=== PATIENT | female | born 1930 | race Caucasian/White ===

== ENCOUNTER 2019-04-01 20:05 | Emergency (ER) | payer OTHER ==
[~2019-04-01] VITALS: Ht 149.9 cm; Wt 51.7 kg
[2019-04-01] MEDS ORDERED: EVISTA60 MG (20:19)
[2019-04-01] MEDS ORDERED: NORVASC2.5 M1 (20:19)
[2019-04-01] MEDS ORDERED: LIPITOR20 MG (20:19)
[2019-04-01] MEDS ORDERED: HUMALOG MI100 UNIT/1 (20:20)
[2019-04-01] MEDS ORDERED: AVAPRO75 MG (20:20)
[2019-04-01] MEDS ORDERED: ASPIR 8181 MG (20:20)
[2019-04-01] MEDS ORDERED: HUMULIN 70100 UNIT/1 (20:21)
== END 2019-04-01 22:50 | disposition home or self-care (01) ==
LOC: ER 20:05
DX: J06.9 Acute upper respiratory infection, unspecified (principal); S70.01XA Contusion of right hip, initial encounter; S60.211A Contusion of right wrist, initial encounter; M54.2 Cervicalgia; W18.09XA Striking against other object with subsequent fall, initial encounter; Y93.89 Activity, other specified; Y92.018 Other place in single-family (private) house as the place of occurrence of the external cause; Y99.8 Other external cause status

== ENCOUNTER 2019-04-06 15:37 | Emergency (ER) | payer OTHER ==
[~2019-04-06] VITALS: Ht 152.4 cm; Wt 54.4 kg
[~2019-04-06 15:37] MED LIST: ASPIR 8181 MG; AVAPRO75 MG; EVISTA60 MG; HUMALOG MI100 UNIT/1; HUMULIN 70100 UNIT/1; LIPITOR20 MG; NORVASC2.5 M1
== END 2019-04-06 23:45 | disposition home or self-care (01) ==
LOC: ER 15:37
DX: J18.0 Bronchopneumonia, unspecified organism (principal)